=== PATIENT | male | born 1985 | race Caucasian/White ===

== ENCOUNTER 2021-07-29 11:08 | Emergency (ER) | payer OTHER, SELFPAY ==
[2021-07-29 11:08] VITALS: BP 137/86
[2021-07-29 12:16] LABS: HEMOGLOBIN 14.5 g/dl (13.5-17.5); MEAN CORPUSCULAR HGB CONC 33.7 g/dl (32.0-36.5); PLATELET COUNT, AUTOMATED 247 10^3/uL (150-450); RED BLOOD COUNT 4.83 10^6/uL (4.30-6.10); WHITE BLOOD COUNT 7.5 10^3/uL (4.0-10.0)
[2021-07-29 12:55] LABS: AMPHETAMINES LEVEL URINE POSITIVE (NEGATIVE); BARBITURATES URINE NEGATIVE (NEGATIVE); BENZODIAZEPINES URINE NEGATIVE (NEGATIVE); CANNABINOIDS URINE POSITIVE (NEGATIVE); COCAINE METABOLITE URINE POSITIVE (NEGATIVE); METHADONE URINE NEGATIVE (NEGATIVE); OPIATES URINE NEGATIVE (NEGATIVE); PHENCYCLIDINE URINE NEGATIVE (NEGATIVE)
[2021-07-29 12:56] LABS: ACETAMINOPHEN LEVEL < 2.0 UG/ML (10.0-30.0); ALT/SGPT 42 U/L (12-78); BILIRUBIN,DIRECT < 0.1 MG/DL (0.0-0.2); BILIRUBIN,TOTAL 0.4 MG/DL (0.2-1.0); BLOOD UREA NITROGEN 14 MG/DL (7-18); CARBON DIOXIDE LEVEL 25 MEQ/L (21-32); CHLORIDE LEVEL 108 MEQ/L (98-107); CREATININE FOR GFR 0.69 MG/DL (0.70-1.30); ETHYL ALCOHOL (ETHANOL) < 0.003 % (0.000-0.010); GLOMERULAR FILTRATION RATE > 60.0 (>60); GLUCOSE, FASTING 94 MG/DL (70-100); POTASSIUM SERUM 3.8 MEQ/L (3.5-5.1); SALICYLATE LEVEL 3.5 MG/DL (5.0-30.0); SODIUM LEVEL 141 MEQ/L (136-145); THYROID STIMULATING HORMONE 0.598 uIU/ML (0.358-3.740)
--- NOTE | 2021-07-29 13:59 | MHIPNPDOC ---
[facility] Progress Note Progress Note DATE OF SERVICE: 07/29/21 Was called by [facility] who evaluated the patient on initial interview. Reports patient is a 35-year-old male who was brought in by police, mother called police after patient stated in anger that he wanted to shoot his brains out in context of anger and a verbal altercation at home due to him using cocaine and methamphetamine recently, she threatened to kick him out of the house and so things escalated verbally. Patient does not have a psychiatric history per chart review apart from a history of ODD, no past suicide attempts, has no outpatient treatment or inpatient admission. Collateral was obtained for mother Claudia was no concerns that he would actually harm himself or commit suicide was more of a reason to get him to the emergency room so that he can work on his substance abuse, patient denies in the ED any suicidal ideation, intent or plan, also any homicidal ideation, intent or plan. Made PSA aware that they must obtained SAFE ACT (this is despite the fact the patient and family deny he has access to any weapons or guns, as he may try to obtain in the future) and get the patient an appointment within 7 days including walk-in for substance abuse, continue with safety plans are for safe discharge. Made PSA where the patient does not meet criteria for involuntary admission at this time and patient states he will refuse admission despite it being offered. Vital Signs Vital Signs Date Time Temp Pulse Resp B/P (MAP) Pulse Ox O2 Delivery O2 Flow Rate FiO2 07/29/21 11:08 98.6 89 18 137/86 (103) 98 Room Air Laboratory Data 24H Labs Laboratory Tests 2 07/29/21 12:03: Nucleated Red Blood Cells % (auto) 0.0, Anion Gap 8, Glomerular Filtration Rate > 60.0, Calcium Level 9.0, Total Bilirubin 0.4, Direct Bilirubin < 0.1, Aspartate Amino Transf (AST/SGOT) 27, Alanine Aminotransferase (ALT/SGPT) 42, Alkaline Phosphatase 70, Total Protein 7.0, Albumin 4.0, Albumin/Globulin Ratio 1.3, Thyroid Stimulating Hormone (TSH) 0.598, Salicylates Level 3.5L, Acetaminophen Level < 2.0L, Ethyl Alcohol Level < 0.003 07/29/21 12:11: Urine Opiates Screen NEGATIVE, Urine Methadone Screen NEGATIVE, Urine Barbiturates Screen NEGATIVE, Urine Phencyclidine Screen NEGATIVE, Urine Amphetamines Screen POSITIVEH, Urine Benzodiazepines Screen NEGATIVE, Urine Cocaine Metabolite Screen POSITIVEH, Urine Cannabinoids Screen POSITIVEH CBC/BMP Laboratory Tests 07/29/21 12:03 Allergies Coded Allergies: No Known Allergies (Unverified , 07/29/21) BETHANY RODRIGUEZ MD Jul 29, 2021 13:59
== END 2021-07-29 14:56 | disposition home or self-care (01) ==
LOC: M ED 11:08
DX: F43.0 Acute stress reaction (principal); F19.10 Other psychoactive substance abuse, uncomplicated; F14.10 Cocaine abuse, uncomplicated; F17.200 Nicotine dependence, unspecified, uncomplicated

== ENCOUNTER → 2023-01-12 | Outpatient (REF) | payer OTHER ==
[2023-01-12 18:18] LABS: ALBUMIN 4.6 G/DL (3.2-5.2); ALKALINE PHOSPHATASE 67 U/L (46-116); ALT/SGPT 65 U/L (7.0-40); AST/SGOT 25 U/L (<34); BILIRUBIN,TOTAL 0.6 MG/DL (0.3-1.2); BLOOD UREA NITROGEN 14 MG/DL (9-23); CALCIUM LEVEL 9.5 MG/DL (8.5-10.1); CARBON DIOXIDE LEVEL 28 MMOL/L (20-31); CHLORIDE LEVEL 106 MMOL/L (98-107); CHOLESTEROL LEVEL 254 MG/DL (<200); CHOLESTEROL RISK RATIO 7.81 (<5); CREATININE FOR GFR 0.84 MG/DL (0.70-1.30); GLOMERULAR FILTRATION RATE > 60.0 (>60); GLUCOSE, FASTING 87 MG/DL (60-100); HDL CHOLESTEROL 32.5 MG/DL (>40); NON-HDL-C 222 MG/DL; POTASSIUM SERUM 4.3 MMOL/L (3.5-5.1); SODIUM LEVEL 139 MMOL/L (136-145); TOTAL PROTEIN 7.6 G/DL (5.7-8.2); TRIGLYCERIDES LEVEL 414 MG/DL (<150)
[2023-01-12 18:19] LABS: THYROID STIMULATING HORMONE 0.753 uIU/ML (0.55-4.78)
[2023-01-12 18:20] LABS: TOTAL 25(OH) VITAMIN D 11.8 NG/ML (20.0-100.0)
[2023-01-12 18:24] LABS: HEMOGLOBIN A1c 5.5 % (4.0-6.0)
[2023-01-12 18:45] LABS: HIV 1&2 SCREEN CENTAUR NEGATIVE (NEGATIVE)
[2023-01-12 18:51] LABS: HEPATITIS C VIRUS ABY INDEX 0.1 INDEX (<0.8)
== END ==
LOC: M LAB REF 16:38
PROVIDERS: ATTEND Nurse Practitioner Family
DX: E66.3 Overweight (principal); Z11.9 Encounter for screening for infectious and parasitic diseases, unspecified

== ENCOUNTER 2024-05-17 14:15 | Emergency (ER) | payer OTHER ==
[~2024-05-17] VITALS: Ht 165.1 cm; Wt 70.9 kg
[2024-05-17] MEDS ORDERED: BENA25CA4 PO (14:28)
[2024-05-17] MEDS: NS 1,000 ML IV ONE ×2 (14:35→16:46)
[2024-05-17 14:51] LABS: BASO % 0.4 % (0.0-1.0); EOS % 0.4 % (0.0-3.0); HEMATOCRIT 46.1 % (42.0-52.0); HEMOGLOBIN 16.6 g/dl (13.5-17.5); LYMPH % 26.1 % (24.0-44.0); MEAN CORPUSCULAR HEMOGLOBIN 30.8 pg (27.0-33.0); MEAN CORPUSCULAR VOLUME 85.5 fl (80.0-96.0); MONO # 0.5 10^3/uL (0.0-0.8); MONO % 6.7 % (2.0-8.0); NEUTROPHILS # 5.1 10^3/uL (1.5-8.5); NEUTROPHILS % 66.1 % (36.0-66.0); PLATELET COUNT, AUTOMATED 252 10^3/uL (150-450); RED BLOOD COUNT 5.39 10^6/uL (4.30-6.10); WHITE BLOOD COUNT 7.7 10^3/uL (4.0-10.0)
[2024-05-17 15:21] LABS: LIPASE 39 U/L (12-53)
[2024-05-17 15:23] LABS: ALBUMIN 4.3 G/DL (3.2-5.2); ALKALINE PHOSPHATASE 62 U/L (46-116); ALT/SGPT 59 U/L (7.0-40); AST/SGOT 24 U/L (<34); BILIRUBIN,DIRECT 0.3 MG/DL (<0.4); BLOOD UREA NITROGEN 21 MG/DL (9-23); CALCIUM LEVEL 9.9 MG/DL (8.5-10.1); CARBON DIOXIDE LEVEL 26 MMOL/L (20-31); CHLORIDE LEVEL 101 MMOL/L (98-107); CREATININE FOR GFR 1.03 MG/DL (0.70-1.30); GLOMERULAR FILTRATION RATE > 60.0 (>60); GLUCOSE, FASTING 124 MG/DL (60-100); POTASSIUM SERUM 3.9 MMOL/L (3.5-5.1); SODIUM LEVEL 137 MMOL/L (136-145); TOTAL PROTEIN 7.1 G/DL (5.7-8.2)
[2024-05-17] MEDS ORDERED: ONDA-282 PO (17:38)
[2024-05-17] MEDS ORDERED: AMOX500C PO (17:38)
[2024-05-17 17:52] VITALS: BP 132/84; TEMP 98; O2SAT 98
== END 2024-05-17 17:56 | disposition home or self-care (01) ==
LOC: M ED 14:15
DX: K02.9 Dental caries, unspecified (principal); E86.0 Dehydration; F19.10 Other psychoactive substance abuse, uncomplicated; F12.10 Cannabis abuse, uncomplicated; Z79.2 Long term (current) use of antibiotics; Z79.83 Long term (current) use of bisphosphonates; Z79.899 Other long term (current) drug therapy

== ENCOUNTER 2024-07-10 00:33 | Emergency (ER) | payer OTHER ==
[~2024-07-10] VITALS: Ht 167.6 cm; Wt 70.7 kg
[~2024-07-10 00:33] MED LIST: AMOX500C PO; BENA25CA4 PO; ONDA-282 PO
[2024-07-10] MEDS: LIDOCAINE W/EPINEPHRINE 1% 20ML VIAL SC ONE (04:32)
[2024-07-10] MEDS ORDERED: AUGM500T34 PO (05:37)
[2024-07-10 05:45] VITALS: BP 164/79; TEMP 97.9; O2SAT 96
== END 2024-07-10 07:04 | disposition home or self-care (01) ==
LOC: M ED 00:33 → EDBD 00:33 → M ED 07:04
DX: S81.812A Laceration without foreign body, left lower leg, initial encounter (principal); W54.0XXA Bitten by dog, initial encounter; Y92.009 Unspecified place in unspecified non-institutional (private) residence as the place of occurrence of the external cause; Y93.89 Activity, other specified; Y99.9 Unspecified external cause status; Z79.2 Long term (current) use of antibiotics; Z79.83 Long term (current) use of bisphosphonates; Z79.899 Other long term (current) drug therapy
CPT/HCPCS: 12032; 13121; 13122; 73590; 99284; J0665

== ENCOUNTER → 2025-10-18 | Outpatient (REF) ==
[~2025-10-18] MED LIST changes: +AUGM500T34 PO; +CLOT1CRE56 TOP
== END ==
LOC: M LAB 09:41
PROVIDERS: ATTEND Family Medicine
DX: Z02.89 Encounter for other administrative examinations (principal)